=== PATIENT | female | born 1945 | race Caucasian/White ===

== ENCOUNTER 2017-07-19 12:56 | Emergency (ER) | payer MEDICARE ==
[~2017-07-19] VITALS: Ht 156.7 cm; Wt 80.0 kg
[~2017-07-19 12:56] MED LIST: BL ASPIRIN325 MG PO; CIPRO500 MG PO; FLEXERIL OR; HTN MED; HYDROCHLOROT12.5 MG PO; HYDROCHLOROT25 MG PO; MOBIC15 MG PO; NAPROSYN500 MG PO; ZESTRIL20 MG PO
[2017-07-19] MEDS ORDERED: ZESTRIL10 M1 PO (13:18)
[2017-07-19] MEDS ORDERED: TORADOL PO (13:44)
[2017-07-19] MEDS ORDERED: MEDDOSEPAK PO (13:44)
[2017-07-19 13:53] VITALS: BP 120/60
== END 2017-07-19 14:05 | disposition home or self-care (01) ==
LOC: ED 12:56
DX: G89.29 Other chronic pain (principal); M25.511 Pain in right shoulder; M54.9 Dorsalgia, unspecified

== ENCOUNTER 2021-09-01 23:07 | Emergency (ER) | payer MEDICARE, OTHER ==
[~2021-09-01] VITALS: Ht 157.5 cm; Wt 71.0 kg
[~2021-09-01 23:07] MED LIST changes: +COZAAR100 MG PO; +MEDDOSEPAK PO; +MULTIVITAMIN AD1 TAB; +TORADOL PO; +ZESTRIL10 M1 PO; +[UNRECOGNIZED DRUG - OTHER] PO
[2021-09-01 23:14] VITALS: BP 182/92
[2021-09-01 23:30] VITALS: BP 184/91
[2021-09-02] VITALS (7 sets, daily range): BP systolic 150–183; BP diastolic 70–89
[2021-09-02 00:23] LABS: HEMATOCRIT 43.5 % (37.0-47.0); HEMOGLOBIN 14.2 g/dl (12.0-16.0); IMMATURE GRANULOCYTES 0.4 % (0.0-5.0); MEAN CORPUSCULAR HGB 28.4 pG CALC (26.0-32.0); MEAN CORPUSCULAR HGB CONC 32.6 g/dL CAL (32.0-36.0); NEUT# 5.37 thou/uL (2.00-7.15); RED CELL DISTRI WIDTH 13.5 % (11.5-15.5)
[2021-09-02 00:32] LABS: ALBUMIN 3.9 g/dL (3.2-5.0); ALKALINE PHOSPHATASE 86 u/l (38-126); ANION GAP 10 (6-22 (CALC)); BILIRUBIN, TOTAL 0.3 mg/dL (0.0-1.4); BUN 14 mg/dL (8-23); BUN/CREATININE RATIO 16 (12-20 (CALC)); CARBON DIOXIDE 28 mmol/l (22-30); CHLORIDE 106 mmol/l (95-108); CREATININE 0.9 mg/dL (0.5-1.0); GFR > 60 ML/MIN (>=60 (CALC)); GFR FOR AFR.AMER. > 60 ML/MIN (>=60 (CALC)); POTASSIUM 3.6 mmol/l (3.5-5.1); SGOT/AST 21 u/l (9-36); SODIUM 141 mmol/l (137-146); TOTAL PROTEIN 6.7 g/dL (6.3-8.2)
[2021-09-02 00:43] LABS: MYOGLOBIN 29 ng/mL (0 - 62)
[2021-09-02] MEDS ORDERED: CLONIDINE0.1 MG PO (01:32)
[2021-09-02 01:37] LABS: URINE BILIRUBIN - DIPSTICK NEGATIVE (NEGATIVE); URINE BLOOD DIPSTICK NEGATIVE (NEGATIVE); URINE COLOR YELLOW; URINE GLUCOSE - DIPSTICK NEGATIVE (NEGATIVE); URINE KETONE NEGATIVE (NEGATIVE); URINE LEUK ESTERASE TRACE (NEGATIVE); URINE NITRITE - DIPSTICK NEGATIVE (Negative); URINE PH 6.5 (4.5-8.0); URINE PROTEIN - DIPSTICK NEGATIVE (NEG-TRACE); URINE SPECIFIC GRAVITY <=1.005; URINE UROBILINOGEN - DIPSTICK 0.2 E.U./dL (0.2)
== END 2021-09-02 01:48 | disposition home or self-care (01) ==
LOC: ED 23:07
PROVIDERS: Emergency Medicine
DX: I10 Essential (primary) hypertension (principal)

== ENCOUNTER 2022-10-30 16:19 | Emergency (ER) | payer MEDICARE ==
[2022-10-30] VITALS (13 sets, daily range): BP systolic 162–186; BP diastolic 82–103
[~2022-10-30] VITALS: Ht 157.5 cm; Wt 74.0 kg
[~2022-10-30 16:19] MED LIST changes: +CLONIDINE0.1 MG PO
[2022-10-30] MEDS ORDERED: ZESTRIL10 M1 PO (18:03)
[2022-10-30 18:17] LABS: BASO% 1.1 % (0-3); EOS% 2.6 % (0-8); HEMATOCRIT 45.2 % (37.0-47.0); HEMOGLOBIN 14.4 g/dl (12.0-16.0); IMMATURE GRANULOCYTES 0.1 % (0.0-5.0); LYMPH% 22.2 % (15-41); MEAN CELL VOLUME 86.8 fL CALC (80.0-100.0); MEAN CORPUSCULAR HGB 27.6 pG CALC (26.0-32.0); MEAN CORPUSCULAR HGB CONC 31.9 g/dL CAL (32.0-36.0); MONO% 8.4 % (2-13); NEUT# 5.73 thou/uL (2.00-7.15); NEUT% 65.6 % (42-76); RED BLOOD COUNT 5.21 mill/uL (4.20-5.60); RED CELL DISTRI WIDTH 14.3 % (11.5-15.5)
[2022-10-30 18:47] LABS: ALBUMIN 4.2 g/dL (3.2-5.0); ALKALINE PHOSPHATASE 71 u/l (38-126); ANION GAP 12 (6-22 (CALC)); BILIRUBIN, TOTAL 0.2 mg/dL (0.02-1.3); BUN 19 mg/dL (8-23); BUN/CREATININE RATIO 19 (12-20 (CALC)); CARBON DIOXIDE 24 mmol/l (22-30); CHLORIDE 110 mmol/l (95-108); GFR FOR AFR.AMER. > 60 ML/MIN (>=60 (CALC)); GFR OTHER RACES 54 ML/MIN (>=60 (CALC)); POTASSIUM 4.2 mmol/l (3.5-5.1); SGOT/AST 22 u/l (9-36); SODIUM 141 mmol/l (137-146); TOTAL PROTEIN 6.7 g/dL (6.3-8.2)
== END 2022-10-30 20:10 | disposition home or self-care (01) ==
LOC: ED 16:19
PROVIDERS: Family Medicine
DX: I10 Essential (primary) hypertension (principal)